=== PATIENT | male | born 1975 | race Two or more races ===

== ENCOUNTER 2023-08-10 22:57 | Inpatient (IN) | payer OTHER ==
[~2023-08-10] VITALS: Ht 185.4 cm; Wt 93.4 kg
[2023-08-10 23:33] LABS: BASOPHILS # (AUTO) 0.03 K/uL (0.00-0.20); BASOPHILS % (AUTO) 0.3 % (0.0-5.0); EOSINOPHILS # (AUTO) 0.17 K/uL (0.00-0.70); EOSINOPHILS % (AUTO) 1.7 % (0.0-8.0); HEMATOCRIT 30.4 % (42-54); IMMATURE GRANULOCYTE ABSOLUTE 0.08 K/uL (0-1); LYMPHOCYTES # (AUTO) 0.9 K/uL (1.0-4.8); LYMPHOCYTES % (AUTO) 9.5 % (21.0-51.0); MEAN CORPUSCULAR HEMOGLOBIN 33.2 pg (27.0-33.0); MEAN CORPUSCULAR HGB CONC 34.2 g/dL (32.0-36.0); MEAN CORPUSCULAR VOLUME 97.1 fL (79-99); MONOCYTES # (AUTO) 0.7 K/uL (0.1-1.0); MONOCYTES % (AUTO) 6.6 % (3.0-13.0); NEUTROPHILS % (AUTO) 81.1 % (40.0-77.0); PLATELET COUNT (AUTO) 105 K/uL (130-400); RED BLOOD CELL COUNT(AUTO) 3.13 MIL/uL (4.50-6.20); RED CELL DISTRIBUTION WIDTH 15.8 % (11.0-15.5); WHITE BLOOD COUNT (AUTO) 9.9 K/uL (4.8-10.8)
[2023-08-10 23:43] LABS: CREATININE 0.8 mg/dL (0.5-1.5); POTASSIUM 3.6 mmol/L (3.5-5.1)
[2023-08-10 23:56] LABS: ALBUMIN 1.6 g/dL (3.5-5.0); TOTAL PROTEIN, SERUM 9.3 g/dL (6.0-8.3)
[2023-08-10 23:58] LABS: BILIRUBIN,URINE 10 mg/dL (NEGATIVE); COLOR,URINE DARK-YELLOW (YELLOW); GLUCOSE, URINE (UA) NEGATIVE (NEGATIVE); KETONES,URINE NEGATIVE (NEGATIVE); LEUKOCYTE ESTERASE ,URINE NEGATIVE Leu/uL (NEGATIVE); NITRATE,URINE NEGATIVE (NEGATIVE); OCCULT BLOOD,URINE NEGATIVE (NEGATIVE); PROTEIN,URINE 10 mg/dL (NEGATIVE); UROBILINOGEN,URINE 0.2 mg/dL (0.2-1.0)
[2023-08-10 23:59] LABS: ADD UA MICROSCOPIC YES; APPEARANCE,URINE SLIGHTLY CLOUDY (CLEAR)
[2023-08-11 00:01] LABS: WBC MORPHOLOGY CONSISTENT W/DIFF
[2023-08-11 00:02] LABS: BILIRUBIN,TOTAL 18.9 mg/dL (0.2-1.0)
[2023-08-11 00:04] LABS: BACTERIA,URINE RARE /HPF (None Seen); MUCUS,URINE RARE LPF (None Seen); SQUAMOUS EPITHELIAL CELL,UR RARE /HPF (0-2); WBC,URINE 0-1 /HPF (0-1)
[2023-08-11 01:10] LABS: INR 1.9 (0.85-1.15); PROTHROMBIN TIME 21.1 SEC (9.6-11.6)
[2023-08-11 01:11] LABS: PARTIAL THROMBOPLASTIN TIME 40.5 SEC (26.3-35.5)
[2023-08-11] MEDS ORDERED: HYDROMORPHONE 0.5 MG SYG (0.5MG/0.5ML) IVP PRN (03:30)
[2023-08-11] MEDS ORDERED: ONDANSETRON 4MG INJ IVP PRN (03:30)
[2023-08-11] MEDS: ZOSYN 3.375GM +NS 50ML IVPB SCH ×2 (05:04→11:45)
[2023-08-11] MEDS ORDERED: ALBUMIN (HUMAN) 25% 200 ML IV ONE (08:54)
[2023-08-11] MEDS ORDERED: SODIUM BICARB 50MEQ 50ML VIAL 50 ML ONE (08:54)
[2023-08-11 14:36] LABS: BODY FLUID RBC 661 /cu. mm.; BODY FLUID WBC 168 /cu. mm.
[2023-08-11 14:41] VITALS: BP 120/65; PULSE 99; RESP 16; O2SAT 97
[2023-08-11 14:48] LABS: APPEARANCE BODY FLUID CLEAR (CLEAR); COLOR,BODY FLUID YELLOW (LT YELLOW); SPECIMENTYPE,BODY FLUID ASCITES; TOTAL VOLUME,BODY FLUID 6500 mL
[2023-08-11 14:50] LABS: TOTAL PROTEIN,BODY FLUID 0.7 g/dL
[2023-08-11 14:55] LABS: ALBUMIN,BODY FLUID 0.1 g/dL
[2023-08-11 16:06] LABS: BF LYMPHOCYTE 3 %; BF MACROPHAGE 2; BF OTHER CELLS 17; BF TOTAL CELLS COUNTED 100
== END 2023-08-11 15:35 | disposition home or self-care (01) | DRG 433 ==
LOC: EDH 22:57 → EDHIP 22:58
PROVIDERS: ADMIT Internal Medicine; ATTEND Internal Medicine
PROC: 0W9G3ZZ Drainage of Peritoneal Cavity, Percutaneous Approach (ICD-10-PCS; principal; 2023-08-11)
DX: K74.60 Unspecified cirrhosis of liver (principal); R18.8 Other ascites; Z79.899 Other long term (current) drug therapy
CPT/HCPCS: 36415; 49083; 76700; 80053; 81001; 82042; 82140; 83690; 84157; 84484; 85025; 85610; 85730; 87071; 87205; 89051; 93005; 96365; C1729; G0378; J2543; J3490; P9046

== ENCOUNTER 2023-12-06 08:11 | Emergency (ER) | payer OTHER ==
[~2023-12-06] VITALS: Ht 167.6 cm; Wt 90.7 kg
[2023-12-06 10:55] LABS: BASOPHILS # (AUTO) 0.04 K/uL (0.00-0.20); BASOPHILS % (AUTO) 0.4 % (0.0-5.0); EOSINOPHILS % (AUTO) 2.2 % (0.0-8.0); HEMATOCRIT 29.9 % (42-54); IMMATURE GRANULOCYTE ABSOLUTE 0.03 K/uL (0-1); LYMPHOCYTES # (AUTO) 0.7 K/uL (1.0-4.8); LYMPHOCYTES % (AUTO) 8.1 % (21.0-51.0); MEAN CORPUSCULAR HEMOGLOBIN 32.9 pg (27.0-33.0); MEAN CORPUSCULAR HGB CONC 33.4 g/dL (32.0-36.0); MEAN CORPUSCULAR VOLUME 98.4 fL (79-99); MONOCYTES # (AUTO) 0.5 K/uL (0.1-1.0); MONOCYTES % (AUTO) 5.6 % (3.0-13.0); NEUTROPHILS # (AUTO) 7.5 K/uL (1.8-7.7); NEUTROPHILS % (AUTO) 83.4 % (40.0-77.0); PLATELET COUNT (AUTO) 92 K/uL (130-400); RED BLOOD CELL COUNT(AUTO) 3.04 MIL/uL (4.50-6.20); RED CELL DISTRIBUTION WIDTH 14.4 % (11.0-15.5)
[2023-12-06 11:03] LABS: CREATININE 0.8 mg/dL (0.5-1.5); POTASSIUM 3.3 mmol/L (3.5-5.1)
[2023-12-06 11:08] LABS: ALBUMIN 2.1 g/dL (3.5-5.0); BILIRUBIN,TOTAL 7.6 mg/dL (0.2-1.0); TOTAL PROTEIN, SERUM 9.3 g/dL (6.0-8.3)
[2023-12-06] MEDS ORDERED: SODIUM BICARB 50MEQ 50ML VIAL 50 ML ONE (11:56)
[2023-12-06 12:08] LABS: INR 1.88 (0.85-1.15); PROTHROMBIN TIME 20.9 SEC (9.6-11.6)
[2023-12-06 12:09] LABS: PARTIAL THROMBOPLASTIN TIME 36.9 SEC (26.3-35.5)
[2023-12-06] MEDS ORDERED: ALBUMIN (HUMAN) 25% 100 ML IV ONE ×2 (12:53→13:07)
[2023-12-06] MEDS ORDERED: ALBUMIN (HUMAN) 25% 200 ML IV SCH (13:00)
[2023-12-06 14:07] VITALS: BP 118/86; PULSE 86; RESP 18; O2SAT 98
[2023-12-14] MEDS ORDERED: FURO20TA6 PO (23:01)
[2023-12-14] MEDS ORDERED: MULT-1299 PO (23:01)
[2023-12-14] MEDS ORDERED: SPIR50TA5 PO (23:01)
[2023-12-14] MEDS ORDERED: CETI-89 PO (23:01)
[2023-12-14] MEDS ORDERED: CALC500T13 PO (23:24)
== END 2023-12-06 14:09 | disposition home or self-care (01) ==
LOC: EDH 08:11
DX: R18.8 Other ascites (principal); K74.60 Unspecified cirrhosis of liver
CPT/HCPCS: 49083; 99285; 74176; 96365; 71045; 84484; 80053; 83690; 85025; 85610; 85730; 36415; 93005; P9047 ×2; J3490; C1729; P9046

== ENCOUNTER 2023-12-08 14:01 | Emergency (ER) | payer OTHER ==
[~2023-12-08] VITALS: Ht 185.4 cm; Wt 83.0 kg
[2023-12-08 14:38] LABS: BASOPHILS # (AUTO) 0.03 K/uL (0.00-0.20); BASOPHILS % (AUTO) 0.3 % (0.0-5.0); EOSINOPHILS # (AUTO) 0.62 K/uL (0.00-0.70); EOSINOPHILS % (AUTO) 6.2 % (0.0-8.0); HEMATOCRIT 28.6 % (42-54); IMMATURE GRANULOCYTE ABSOLUTE 0.05 K/uL (0-1); LYMPHOCYTES # (AUTO) 1.2 K/uL (1.0-4.8); MEAN CORPUSCULAR HGB CONC 33.2 g/dL (32.0-36.0); MEAN CORPUSCULAR VOLUME 99.3 fL (79-99); MONOCYTES # (AUTO) 0.5 K/uL (0.1-1.0); MONOCYTES % (AUTO) 4.9 % (3.0-13.0); NEUTROPHILS # (AUTO) 7.7 K/uL (1.8-7.7); NEUTROPHILS % (AUTO) 76.1 % (40.0-77.0); PLATELET COUNT (AUTO) 93 K/uL (130-400); RED BLOOD CELL COUNT(AUTO) 2.88 MIL/uL (4.50-6.20); RED CELL DISTRIBUTION WIDTH 14.6 % (11.0-15.5); WHITE BLOOD COUNT (AUTO) 10.1 K/uL (4.8-10.8)
[2023-12-08 14:53] LABS: CREATININE 0.9 mg/dL (0.5-1.5); POTASSIUM 3.7 mmol/L (3.5-5.1)
[2023-12-08 14:57] LABS: ALBUMIN 2.3 g/dL (3.5-5.0); BILIRUBIN,TOTAL 6.2 mg/dL (0.2-1.0); TOTAL PROTEIN, SERUM 8.5 g/dL (6.0-8.3)
[2023-12-08] MEDS ORDERED: DICY20TA2 PO (20:31)
[2023-12-08 21:07] VITALS: BP 128/74; PULSE 80; RESP 18; O2SAT 98
[2023-12-14] MEDS ORDERED: CETI-89 PO (23:01)
[2023-12-14] MEDS ORDERED: SPIR50TA5 PO (23:01)
[2023-12-14] MEDS ORDERED: MULT-1299 PO (23:01)
[2023-12-14] MEDS ORDERED: FURO20TA6 PO (23:01)
[2023-12-14] MEDS ORDERED: CALC500T13 PO (23:24)
== END 2023-12-08 21:08 | disposition home or self-care (01) ==
LOC: EDH 14:01
DX: R18.8 Other ascites (principal); K80.20 Calculus of gallbladder without cholecystitis without obstruction; K74.60 Unspecified cirrhosis of liver; R74.8 Abnormal levels of other serum enzymes; R10.11 Right upper quadrant pain
CPT/HCPCS: 36415; 76705; 80053; 83690; 85025

== ENCOUNTER 2023-12-17 23:20 | Inpatient (IN) | payer OTHER ==
[~2023-12-17] VITALS: Ht 182.9 cm; Wt 76.7 kg
[~2023-12-17 23:20] MED LIST: CALC500T13 PO; CETI-89 PO; DICY20TA2 PO; FURO20TA6 PO; IBUP-2070 PO; MULT-1299 PO; PROM118S5 PO; SPIR50TA5 PO
[2023-12-17] MEDS ORDERED: SPIR50TA5 PO (23:46)
[2023-12-17] MEDS ORDERED: FURO20TA4 PO (23:46)
[2023-12-17] MEDS ORDERED: MULT-1367 PO (23:46)
[2023-12-17] MEDS ORDERED: CETI-89 PO (23:46)
[2023-12-17 23:52] LABS: BASOPHILS # (AUTO) 0.05 K/uL (0.00-0.20); BASOPHILS % (AUTO) 0.5 % (0.0-5.0); EOSINOPHILS # (AUTO) 0.81 K/uL (0.00-0.70); HEMATOCRIT 30.3 % (42-54); IMMATURE GRANULOCYTE ABSOLUTE 0.07 K/uL (0-1); LYMPHOCYTES # (AUTO) 1.5 K/uL (1.0-4.8); LYMPHOCYTES % (AUTO) 15.2 % (21.0-51.0); MEAN CORPUSCULAR HEMOGLOBIN 32.3 pg (27.0-33.0); MEAN CORPUSCULAR HGB CONC 33.7 g/dL (32.0-36.0); MEAN CORPUSCULAR VOLUME 95.9 fL (79-99); MONOCYTES # (AUTO) 1.5 K/uL (0.1-1.0); MONOCYTES % (AUTO) 14.5 % (3.0-13.0); NEUTROPHILS # (AUTO) 6.2 K/uL (1.8-7.7); NEUTROPHILS % (AUTO) 61.1 % (40.0-77.0); PLATELET COUNT (AUTO) 133 K/uL (130-400); RED BLOOD CELL COUNT(AUTO) 3.16 MIL/uL (4.50-6.20); RED CELL DISTRIBUTION WIDTH 15.8 % (11.0-15.5); WHITE BLOOD COUNT (AUTO) 10.1 K/uL (4.8-10.8)
[2023-12-18] VITALS (7 sets, daily range): BP systolic 113–127; BP diastolic 65–73; PULSE 94–114; RESP 18–20; O2SAT 95–96
[2023-12-18 00:01] LABS: CREATININE 0.9 mg/dL (0.5-1.5); POTASSIUM 3.9 mmol/L (3.5-5.1)
[2023-12-18 00:05] LABS: ALBUMIN 2.2 g/dL (3.5-5.0); TOTAL PROTEIN, SERUM 8.5 g/dL (6.0-8.3)
[2023-12-18 00:45] LABS: B-TYPE NATRIURETIC PEPTIDE 80 pg/mL (0-100)
[2023-12-18 01:11] LABS: INR 1.73 (0.85-1.15); PROTHROMBIN TIME 19.4 SEC (9.6-11.6)
[2023-12-18] MEDS: CETIRIZINE HCL 5 MG TABLET PO SCH (07:46)
[2023-12-18] MEDS: FUROSEMIDE 20 MG TABLET PO SCH ×2 (07:46→19:53)
[2023-12-18] MEDS: MULTIVITAMIN WITH MINERALS TABLET PO SCH (07:46)
[2023-12-18] MEDS: SPIRONOLACTONE 25 MG TAB PO SCH ×2 (07:47→19:53)
[2023-12-18] MEDS: KETOROLAC 15MG/ML VIAL (15MG/ML) IV PRN ×3 (07:48→22:55)
[2023-12-19] VITALS (15 sets, daily range): BP systolic 99–137; BP diastolic 58–83; PULSE 78–107; RESP 16–22; O2SAT 95–100
[2023-12-19 04:55] LABS: BASOPHILS # (AUTO) 0.03 K/uL (0.00-0.20); BASOPHILS % (AUTO) 0.4 % (0.0-5.0); EOSINOPHILS # (AUTO) 1.02 K/uL (0.00-0.70); EOSINOPHILS % (AUTO) 12.3 % (0.0-8.0); IMMATURE GRANULOCYTE ABSOLUTE 0.04 K/uL (0-1); LYMPHOCYTES # (AUTO) 1.4 K/uL (1.0-4.8); LYMPHOCYTES % (AUTO) 17.2 % (21.0-51.0); MEAN CORPUSCULAR HGB CONC 33.1 g/dL (32.0-36.0); MEAN CORPUSCULAR VOLUME 96.7 fL (79-99); MONOCYTES # (AUTO) 1.1 K/uL (0.1-1.0); MONOCYTES % (AUTO) 13.1 % (3.0-13.0); NEUTROPHILS # (AUTO) 4.7 K/uL (1.8-7.7); NEUTROPHILS % (AUTO) 56.5 % (40.0-77.0); PLATELET COUNT (AUTO) 114 K/uL (130-400); RED CELL DISTRIBUTION WIDTH 15.9 % (11.0-15.5); WHITE BLOOD COUNT (AUTO) 8.3 K/uL (4.8-10.8)
[2023-12-19 05:03] LABS: INR 1.68 (0.85-1.15); PROTHROMBIN TIME 18.8 SEC (9.6-11.6)
[2023-12-19 05:04] LABS: PARTIAL THROMBOPLASTIN TIME 39.9 SEC (26.3-35.5)
[2023-12-19 05:11] LABS: ALBUMIN 1.9 g/dL (3.5-5.0); BILIRUBIN,TOTAL 6.6 mg/dL (0.2-1.0); CREATININE 1.1 mg/dL (0.5-1.5); POTASSIUM 3.6 mmol/L (3.5-5.1); TOTAL PROTEIN, SERUM 7.8 g/dL (6.0-8.3)
[2023-12-19] MEDS ORDERED: POTASSIUM CHLORIDE 20MEQ/100ML 100 ML IV PRN (06:30)
[2023-12-19] MEDS ORDERED: POTASSIUM CHLORIDE 10% ELIXIR 20 MEQ/15 ML UDCUP PO PRN (06:30)
[2023-12-19] MEDS: CETIRIZINE HCL 5 MG TABLET PO SCH (08:55)
[2023-12-19] MEDS: MULTIVITAMIN WITH MINERALS TABLET PO SCH (08:55)
[2023-12-19] MEDS: SPIRONOLACTONE 25 MG TAB PO SCH ×2 (08:55→20:44)
[2023-12-19] MEDS: FUROSEMIDE 20 MG TABLET PO SCH ×2 (08:55→20:45)
[2023-12-20] VITALS (63 sets, daily range): BP systolic 69–132; BP diastolic 46–71; PULSE 90–136; RESP 14–24; O2SAT 96–100
[2023-12-20] MEDS ORDERED: ZOLPIDEM TARTRATE 5 MG TAB PO PRN (06:30)
[2023-12-20] MEDS: CETIRIZINE HCL 5 MG TABLET PO SCH (08:26)
[2023-12-20] MEDS: MULTIVITAMIN WITH MINERALS TABLET PO SCH (08:26)
[2023-12-20] MEDS: KETOROLAC 15MG/ML VIAL (15MG/ML) IV PRN ×2 (08:29→13:35)
[2023-12-20] MEDS: FUROSEMIDE 20 MG TABLET PO SCH (09:00)
[2023-12-20] MEDS: SPIRONOLACTONE 25 MG TAB PO SCH (09:00)
[2023-12-20] MEDS ORDERED: 0.9% NACL 250ML 250 ML IV SCH ×2 (14:00)
[2023-12-20] MEDS ORDERED: METOPROLOL TARTRATE 1 MG/ML 5ML VIAL IV ONE (14:00)
[2023-12-20] MEDS ORDERED: ALBUMIN (HUMAN) 25% 100 ML IV ONE ×2 (14:09→14:30)
[2023-12-20] MEDS ORDERED: MIDODRINE HCL 5 MG TABLET PO ONE (14:30)
[2023-12-20] MEDS ORDERED: IOHEXOL 350 MG/ML 100ML INFUS..BTL IV ONE (15:03)
[2023-12-20] MEDS ORDERED: NOREPINEPHRIN 4MG/NS 250ML 250 ML IV ONE (15:11)
[2023-12-20] MEDS ORDERED: SOLU-MEDROL 125MG VIAL ONE (15:26)
[2023-12-20] MEDS ORDERED: PHENYLEPHRINE HCL 10 MG in 0.9% NACL 250ML 250 ML IV PRN (15:30)
[2023-12-20] MEDS ORDERED: PHENYLEPHRINE HCL 10 MG/ML 1ML VIAL IV ONE (15:30)
[2023-12-20 15:31] LABS: ABG HCO3 17.1 mmol/L (21.0-28.0); ABG OXYGEN SATURATION 98.3 % (95.0-99.0); ABG PCO2 29 mmHg (35-48); ABG PH 7.394 (7.35-7.450); CARBON MONOXIDE 1.2; HHb 1.7; VENT MODE, BG NRB (ROOM AIR)
[2023-12-20 15:45] LABS: MEAN CORPUSCULAR HEMOGLOBIN 33.1 pg (27.0-33.0); MEAN CORPUSCULAR HGB CONC 30.9 g/dL (32.0-36.0); MEAN CORPUSCULAR VOLUME 107.4 fL (79-99); PLATELET COUNT (AUTO) 148 K/uL (130-400); RED BLOOD CELL COUNT(AUTO) 1.75 MIL/uL (4.50-6.20); RED CELL DISTRIBUTION WIDTH 16.6 % (11.0-15.5); WHITE BLOOD COUNT (AUTO) 10.8 K/uL (4.8-10.8)
[2023-12-20] MEDS ORDERED: VANCOMYCIN PROTOCOL PER PHARMACY IV SCH (16:00)
[2023-12-20] MEDS ORDERED: ALBUMIN (HUMAN) 25% 50 ML IV ONE (16:00)
[2023-12-20] MEDS ORDERED: SOLU-MEDROL 125MG VIAL IVP ONE (16:00)
[2023-12-20 16:13] LABS: HEMATOCRIT 18.8 % (42-54)
[2023-12-20 16:20] LABS: CREATININE 1.4 mg/dL (0.5-1.5); POTASSIUM 3.8 mmol/L (3.5-5.1)
[2023-12-20 16:25] LABS: ALBUMIN 2.2 g/dL (3.5-5.0); BILIRUBIN,TOTAL 5.7 mg/dL (0.2-1.0); MAGNESIUM 2.1 mg/dL (1.80-2.40); PHOSPHORUS 4.4 mg/dL (2.5-4.9); TOTAL PROTEIN, SERUM 6.3 g/dL (6.0-8.3)
[2023-12-20] MEDS ORDERED: PHYTONADIONE 10 MG in 0.9%NACL 50ML 50 ML IVPB ONE (16:30)
[2023-12-20] MEDS: ZOSYN 3.375GM +NS 50ML IV SCH (16:55)
[2023-12-20 17:01] LABS: BASOPHILS # (AUTO) 0.02 K/uL (0.00-0.20); BASOPHILS % (AUTO) 0.2 % (0.0-5.0); EOSINOPHILS % (AUTO) 8.1 % (0.0-8.0); IMMATURE GRANULOCYTE ABSOLUTE 0.21 K/uL (0-1); LYMPHOCYTES # (AUTO) 1.5 K/uL (1.0-4.8); LYMPHOCYTES % (AUTO) 14.9 % (21.0-51.0); MEAN CORPUSCULAR HEMOGLOBIN 32.9 pg (27.0-33.0); MEAN CORPUSCULAR HGB CONC 32.2 g/dL (32.0-36.0); MEAN CORPUSCULAR VOLUME 102.4 fL (79-99); MONOCYTES # (AUTO) 1.1 K/uL (0.1-1.0); NEUTROPHILS # (AUTO) 6.3 K/uL (1.8-7.7); NEUTROPHILS % (AUTO) 63.7 % (40.0-77.0); NUCLEATED RED BLOOD CELLS 0.2 % (0.0-0.19); PLATELET COUNT (AUTO) 135 K/uL (130-400); RED BLOOD CELL COUNT(AUTO) 1.67 MIL/uL (4.50-6.20); RED CELL DISTRIBUTION WIDTH 16.6 % (11.0-15.5); WHITE BLOOD COUNT (AUTO) 9.9 K/uL (4.8-10.8)
[2023-12-20 17:02] LABS: HEMATOCRIT 17.1 % (42-54)
[2023-12-20 17:15] LABS: INR 2.2 (0.85-1.15); PROTHROMBIN TIME 24.2 SEC (9.6-11.6)
[2023-12-20 17:16] LABS: PARTIAL THROMBOPLASTIN TIME 43.3 SEC (26.3-35.5)
[2023-12-20] MEDS: VANCOMYCIN 1.25 GM/250 ML BAG 250 ML IV SCH (17:41)
[2023-12-20] MEDS: PHENYLEPHRINE HCL 100 MG in 0.9% NACL 250ML 250 ML IV SCH (17:59)
[2023-12-20] MEDS ORDERED: COAGULATION FACTOR VIIA RECOMB 1 MG VIAL IV STA (18:49)
[2023-12-20] MEDS ORDERED: HUMAN PROTHROMBIN COMPLX(PCC) 500 UNIT KIT IV STA (18:49)
[2023-12-20] MEDS: MIDODRINE HCL 5 MG TABLET PO SCH (21:09)
[2023-12-20] MEDS: FAMOTIDINE 20MG VIAL IV SCH (21:09)
[2023-12-20 21:28] LABS: APPEARANCE,URINE CLOUDY (CLEAR); BILIRUBIN,URINE 2 mg/dL (NEGATIVE); COLOR,URINE DARK-YELLOW (YELLOW); GLUCOSE, URINE (UA) NEGATIVE (NEGATIVE); KETONES,URINE NEGATIVE (NEGATIVE); LEUKOCYTE ESTERASE ,URINE NEGATIVE Leu/uL (NEGATIVE); NITRATE,URINE NEGATIVE (NEGATIVE); OCCULT BLOOD,URINE NEGATIVE (NEGATIVE); PROTEIN,URINE 50 mg/dL (NEGATIVE); UROBILINOGEN,URINE >=8.0 mg/dL (0.2-1.0)
[2023-12-20 21:31] LABS: BACTERIA,URINE FEW /HPF (None Seen); MUCUS,URINE FEW LPF (None Seen); SQUAMOUS EPITHELIAL CELL,UR FEW /HPF (0-2)
[2023-12-20] MEDS ORDERED: IOHEXOL-350 75 ML VIAL IV ONE (22:24)
[2023-12-20 23:46] LABS: BASOPHILS # (AUTO) 0.01 K/uL (0.00-0.20); BASOPHILS % (AUTO) 0.1 % (0.0-5.0); EOSINOPHILS # (AUTO) 0.05 K/uL (0.00-0.70); EOSINOPHILS % (AUTO) 0.5 % (0.0-8.0); IMMATURE GRANULOCYTE ABSOLUTE 0.21 K/uL (0-1); LYMPHOCYTES % (AUTO) 9.2 % (21.0-51.0); MEAN CORPUSCULAR HEMOGLOBIN 32.5 pg (27.0-33.0); MEAN CORPUSCULAR HGB CONC 33.5 g/dL (32.0-36.0); MONOCYTES # (AUTO) 0.3 K/uL (0.1-1.0); MONOCYTES % (AUTO) 3.3 % (3.0-13.0); NEUTROPHILS # (AUTO) 8.8 K/uL (1.8-7.7); NEUTROPHILS % (AUTO) 84.9 % (40.0-77.0); PLATELET COUNT (AUTO) 128 K/uL (130-400); RED BLOOD CELL COUNT(AUTO) 1.97 MIL/uL (4.50-6.20); RED CELL DISTRIBUTION WIDTH 17.7 % (11.0-15.5); WHITE BLOOD COUNT (AUTO) 10.4 K/uL (4.8-10.8)
[2023-12-20 23:55] LABS: HEMATOCRIT 19.1 % (42-54)
[2023-12-21] VITALS (99 sets, daily range): BP systolic 90–130; BP diastolic 32–70; PULSE 69–116; RESP 9–35; O2SAT 96–100
[2023-12-21 04:40] LABS: BASOPHILS # (AUTO) 0.01 K/uL (0.00-0.20); BASOPHILS % (AUTO) 0.1 % (0.0-5.0); HEMATOCRIT 26.1 % (42-54); LYMPHOCYTES # (AUTO) 1.3 K/uL (1.0-4.8); LYMPHOCYTES % (AUTO) 11.7 % (21.0-51.0); MEAN CORPUSCULAR HEMOGLOBIN 32.8 pg (27.0-33.0); MEAN CORPUSCULAR HGB CONC 33.7 g/dL (32.0-36.0); MEAN CORPUSCULAR VOLUME 97.4 fL (79-99); MONOCYTES # (AUTO) 0.3 K/uL (0.1-1.0); MONOCYTES % (AUTO) 2.6 % (3.0-13.0); NEUTROPHILS # (AUTO) 9.3 K/uL (1.8-7.7); NEUTROPHILS % (AUTO) 84.7 % (40.0-77.0); PLATELET COUNT (AUTO) 142 K/uL (130-400); RED BLOOD CELL COUNT(AUTO) 2.68 MIL/uL (4.50-6.20); RED CELL DISTRIBUTION WIDTH 17.3 % (11.0-15.5)
[2023-12-21 04:50] LABS: CREATININE 1.6 mg/dL (0.5-1.5); POTASSIUM 5.8 mmol/L (3.5-5.1)
[2023-12-21 04:58] LABS: INR 1.39 (0.85-1.15); PROTHROMBIN TIME 15.8 SEC (9.6-11.6)
[2023-12-21 05:00] LABS: PARTIAL THROMBOPLASTIN TIME 33.3 SEC (26.3-35.5)
[2023-12-21] MEDS: VANCOMYCIN 1.25 GM/250 ML BAG 250 ML IV SCH ×2 (05:01→16:55)
[2023-12-21] MEDS: ZOSYN 3.375GM +NS 50ML IV SCH ×4 (05:54→23:57)
[2023-12-21] MEDS: CETIRIZINE HCL 5 MG TABLET PO SCH (08:15)
[2023-12-21] MEDS: LEVOFLOXACIN 750 MG/D5W 150 ML 150 ML IV SCH (08:15)
[2023-12-21] MEDS: MULTIVITAMIN WITH MINERALS TABLET PO SCH (08:16)
[2023-12-21] MEDS: MIDODRINE HCL 5 MG TABLET PO SCH ×3 (08:16→21:03)
[2023-12-21] MEDS: FAMOTIDINE 20MG VIAL IV SCH ×2 (08:18→21:02)
[2023-12-21 09:28] LABS: BASOPHILS # (AUTO) 0.01 K/uL (0.00-0.20); BASOPHILS % (AUTO) 0.1 % (0.0-5.0); HEMATOCRIT 23.8 % (42-54); IMMATURE GRANULOCYTE ABSOLUTE 0.07 K/uL (0-1); LYMPHOCYTES # (AUTO) 1.5 K/uL (1.0-4.8); LYMPHOCYTES % (AUTO) 13.8 % (21.0-51.0); MEAN CORPUSCULAR HEMOGLOBIN 32.4 pg (27.0-33.0); MEAN CORPUSCULAR HGB CONC 33.6 g/dL (32.0-36.0); MEAN CORPUSCULAR VOLUME 96.4 fL (79-99); MONOCYTES # (AUTO) 0.6 K/uL (0.1-1.0); MONOCYTES % (AUTO) 5.4 % (3.0-13.0); NEUTROPHILS # (AUTO) 8.8 K/uL (1.8-7.7); NEUTROPHILS % (AUTO) 80.1 % (40.0-77.0); PLATELET COUNT (AUTO) 147 K/uL (130-400); RED BLOOD CELL COUNT(AUTO) 2.47 MIL/uL (4.50-6.20); RED CELL DISTRIBUTION WIDTH 17.9 % (11.0-15.5)
[2023-12-21] MEDS ORDERED: BUMETANIDE 1MG/4ML VIAL IVP ONE (10:00)
[2023-12-21] MEDS ORDERED: SODIUM BICARB 50MEQ 50ML VIAL IV ONE (10:00)
[2023-12-21 10:04] LABS: ALBUMIN 2.9 g/dL (3.5-5.0); BILIRUBIN,DIRECT 3.6 mg/dL (0.0-0.3); BILIRUBIN,TOTAL 8.5 mg/dL (0.2-1.0); TOTAL PROTEIN, SERUM 6.9 g/dL (6.0-8.3)
[2023-12-21] MEDS: ALBUMIN (HUMAN) 25% 50 ML IV SCH ×3 (10:07→21:03)
[2023-12-21] MEDS: OCTREOTIDE ACETATE 100 MCG/ML AMP IV SCH ×2 (10:52→17:50)
[2023-12-21] MEDS ORDERED: ONDANSETRON 4MG INJ ONE (10:56)
[2023-12-21] MEDS ORDERED: HYDROMORPHONE 0.5 MG SYG (0.5MG/0.5ML) ONE (14:39)
[2023-12-21] MEDS ORDERED: MORPHINE 2 MG SYG ONE (14:39)
[2023-12-21] MEDS ORDERED: LIDOCAINE HCL MPF 1% 5ML VIAL ONE (14:43)
[2023-12-21] MEDS ORDERED: MORPHINE 2 MG SYG IVP ONE (15:00)
[2023-12-21] MEDS ORDERED: HYDROMORPHONE 0.5 MG SYG (0.5MG/0.5ML) IVP ONE (15:00)
[2023-12-21 15:16] LABS: BASOPHILS # (AUTO) 0.01 K/uL (0.00-0.20); BASOPHILS % (AUTO) 0.1 % (0.0-5.0); HEMATOCRIT 21.5 % (42-54); IMMATURE GRANULOCYTE ABSOLUTE 0.09 K/uL (0-1); LYMPHOCYTES # (AUTO) 1.7 K/uL (1.0-4.8); MEAN CORPUSCULAR HEMOGLOBIN 31.5 pg (27.0-33.0); MEAN CORPUSCULAR HGB CONC 32.6 g/dL (32.0-36.0); MEAN CORPUSCULAR VOLUME 96.8 fL (79-99); MONOCYTES # (AUTO) 1.1 K/uL (0.1-1.0); NEUTROPHILS # (AUTO) 9.3 K/uL (1.8-7.7); NEUTROPHILS % (AUTO) 76.2 % (40.0-77.0); PLATELET COUNT (AUTO) 121 K/uL (130-400); RED BLOOD CELL COUNT(AUTO) 2.22 MIL/uL (4.50-6.20); RED CELL DISTRIBUTION WIDTH 18.1 % (11.0-15.5); WHITE BLOOD COUNT (AUTO) 12.2 K/uL (4.8-10.8)
[2023-12-21] MEDS ORDERED: DESMOPRESSIN 40MCG INJ 20 MCG in 0.9%NACL 50ML 50 ML IJ SCH (15:30)
[2023-12-21 15:40] LABS: ALBUMIN 2.5 g/dL (3.5-5.0); BILIRUBIN,TOTAL 7.7 mg/dL (0.2-1.0); CREATININE 1.4 mg/dL (0.5-1.5); POTASSIUM 4.6 mmol/L (3.5-5.1); TOTAL PROTEIN, SERUM 6.1 g/dL (6.0-8.3)
[2023-12-21] MEDS: PHENYLEPHRINE HCL 100 MG in 0.9% NACL 250ML 250 ML IV SCH (18:45)
[2023-12-21 23:27] LABS: BASOPHILS # (AUTO) 0.01 K/uL (0.00-0.20); BASOPHILS % (AUTO) 0.1 % (0.0-5.0); HEMATOCRIT 21.3 % (42-54); IMMATURE GRANULOCYTE ABSOLUTE 0.09 K/uL (0-1); LYMPHOCYTES # (AUTO) 1.2 K/uL (1.0-4.8); MEAN CORPUSCULAR HEMOGLOBIN 32.1 pg (27.0-33.0); MEAN CORPUSCULAR HGB CONC 33.3 g/dL (32.0-36.0); MEAN CORPUSCULAR VOLUME 96.4 fL (79-99); MONOCYTES # (AUTO) 1.8 K/uL (0.1-1.0); MONOCYTES % (AUTO) 13.2 % (3.0-13.0); NEUTROPHILS # (AUTO) 10.3 K/uL (1.8-7.7); PLATELET COUNT (AUTO) 111 K/uL (130-400); RED BLOOD CELL COUNT(AUTO) 2.21 MIL/uL (4.50-6.20); RED CELL DISTRIBUTION WIDTH 17.2 % (11.0-15.5); WHITE BLOOD COUNT (AUTO) 13.4 K/uL (4.8-10.8)
[2023-12-22] VITALS (131 sets, daily range): BP systolic 87–122; BP diastolic 26–68; PULSE 53–98; RESP 7–27; O2SAT 95–100
[2023-12-22] MEDS: OCTREOTIDE ACETATE 100 MCG/ML AMP IV SCH ×3 (01:11→16:38)
[2023-12-22] MEDS: HYDROMORPHONE 0.5 MG SYG (0.5MG/0.5ML) IVP PRN ×2 (01:11→14:29)
[2023-12-22 04:02] LABS: BASOPHILS # (AUTO) 0.01 K/uL (0.00-0.20); BASOPHILS % (AUTO) 0.1 % (0.0-5.0); LYMPHOCYTES # (AUTO) 1.1 K/uL (1.0-4.8); LYMPHOCYTES % (AUTO) 8.1 % (21.0-51.0); MEAN CORPUSCULAR HEMOGLOBIN 32.2 pg (27.0-33.0); MEAN CORPUSCULAR VOLUME 97.5 fL (79-99); MONOCYTES # (AUTO) 1.2 K/uL (0.1-1.0); MONOCYTES % (AUTO) 8.4 % (3.0-13.0); NEUTROPHILS # (AUTO) 11.7 K/uL (1.8-7.7); NEUTROPHILS % (AUTO) 82.7 % (40.0-77.0); PLATELET COUNT (AUTO) 101 K/uL (130-400); RED BLOOD CELL COUNT(AUTO) 2.36 MIL/uL (4.50-6.20); RED CELL DISTRIBUTION WIDTH 16.9 % (11.0-15.5); WHITE BLOOD COUNT (AUTO) 14.1 K/uL (4.8-10.8)
[2023-12-22] MEDS: ALBUMIN (HUMAN) 25% 50 ML IV SCH ×4 (04:11→22:00)
[2023-12-22] MEDS: VANCOMYCIN 1.25 GM/250 ML BAG 250 ML IV SCH (04:52)
[2023-12-22] MEDS: ZOSYN 3.375GM +NS 50ML IV SCH ×2 (08:45→16:37)
[2023-12-22] MEDS: FOLIC ACID 5 MG/ML VIAL IV SCH (08:46)
[2023-12-22] MEDS: LEVOFLOXACIN 750 MG/D5W 150 ML 150 ML IV SCH (08:46)
[2023-12-22] MEDS: THIAMINE HCL 100 MG/ML 2ML VIAL IVP SCH (08:47)
[2023-12-22] MEDS: FAMOTIDINE 20MG VIAL IV SCH ×2 (08:47→21:30)
[2023-12-22] MEDS: CETIRIZINE HCL 5 MG TABLET PO SCH (08:48)
[2023-12-22] MEDS: MULTIVITAMIN WITH MINERALS TABLET PO SCH (08:48)
[2023-12-22] MEDS: MIDODRINE HCL 5 MG TABLET PO SCH ×3 (08:49→21:30)
[2023-12-22 09:51] LABS: BASOPHILS # (AUTO) 0.01 K/uL (0.00-0.20); BASOPHILS % (AUTO) 0.1 % (0.0-5.0); HEMATOCRIT 22.5 % (42-54); IMMATURE GRANULOCYTE ABSOLUTE 0.09 K/uL (0-1); LYMPHOCYTES # (AUTO) 1.2 K/uL (1.0-4.8); LYMPHOCYTES % (AUTO) 8.7 % (21.0-51.0); MEAN CORPUSCULAR HEMOGLOBIN 32.5 pg (27.0-33.0); MEAN CORPUSCULAR HGB CONC 32.9 g/dL (32.0-36.0); MEAN CORPUSCULAR VOLUME 98.7 fL (79-99); MONOCYTES # (AUTO) 1.5 K/uL (0.1-1.0); NEUTROPHILS % (AUTO) 79.6 % (40.0-77.0); PLATELET COUNT (AUTO) 93 K/uL (130-400); RED BLOOD CELL COUNT(AUTO) 2.28 MIL/uL (4.50-6.20); RED CELL DISTRIBUTION WIDTH 17.1 % (11.0-15.5); WHITE BLOOD COUNT (AUTO) 13.9 K/uL (4.8-10.8)
[2023-12-22] MEDS ORDERED: TRAMADOL HCL 50 MG TABLET PO PRN (12:30)
[2023-12-22 15:02] LABS: HEMATOCRIT 22.4 % (42-54)
[2023-12-22] MEDS: INSULIN HUMULIN R 100 UNIT/ML 3ML SQ SCH ×2 (16:29→21:42)
[2023-12-22 20:41] LABS: HEMATOCRIT 23.8 % (42-54)
[2023-12-22] MEDS: VANCOMYCIN 1G/250ML KIT 250 ML IV SCH (21:32)
[2023-12-22 22:58] LABS: BASOPHILS # (AUTO) 0.01 K/uL (0.00-0.20); BASOPHILS % (AUTO) 0.1 % (0.0-5.0); HEMATOCRIT 25.4 % (42-54); IMMATURE GRANULOCYTE ABSOLUTE 0.11 K/uL (0-1); LYMPHOCYTES # (AUTO) 1.3 K/uL (1.0-4.8); LYMPHOCYTES % (AUTO) 9.3 % (21.0-51.0); MEAN CORPUSCULAR HEMOGLOBIN 31.9 pg (27.0-33.0); MEAN CORPUSCULAR HGB CONC 32.3 g/dL (32.0-36.0); MEAN CORPUSCULAR VOLUME 98.8 fL (79-99); MONOCYTES # (AUTO) 1.4 K/uL (0.1-1.0); MONOCYTES % (AUTO) 10.2 % (3.0-13.0); NEUTROPHILS # (AUTO) 10.7 K/uL (1.8-7.7); NEUTROPHILS % (AUTO) 79.6 % (40.0-77.0); PLATELET COUNT (AUTO) 99 K/uL (130-400); RED BLOOD CELL COUNT(AUTO) 2.57 MIL/uL (4.50-6.20); RED CELL DISTRIBUTION WIDTH 16.6 % (11.0-15.5); WHITE BLOOD COUNT (AUTO) 13.5 K/uL (4.8-10.8)
[2023-12-23] VITALS (88 sets, daily range): BP systolic 88–142; BP diastolic 31–70; PULSE 65–95; RESP 7–20; O2SAT 95–98
[2023-12-23] MEDS: HYDROMORPHONE 0.5 MG SYG (0.5MG/0.5ML) IVP PRN ×3 (00:45→20:10)
[2023-12-23] MEDS: ZOSYN 3.375GM +NS 50ML IV SCH ×4 (00:45→23:52)
[2023-12-23] MEDS: OCTREOTIDE ACETATE 100 MCG/ML AMP IV SCH ×3 (04:06→17:03)
[2023-12-23] MEDS: ALBUMIN (HUMAN) 25% 50 ML IV SCH (04:06)
[2023-12-23 05:17] LABS: BASOPHILS # (AUTO) 0.01 K/uL (0.00-0.20); BASOPHILS % (AUTO) 0.1 % (0.0-5.0); HEMATOCRIT 23.1 % (42-54); LYMPHOCYTES # (AUTO) 1.1 K/uL (1.0-4.8); LYMPHOCYTES % (AUTO) 9.6 % (21.0-51.0); MEAN CORPUSCULAR HEMOGLOBIN 31.9 pg (27.0-33.0); MEAN CORPUSCULAR HGB CONC 32.9 g/dL (32.0-36.0); MEAN CORPUSCULAR VOLUME 97.1 fL (79-99); MONOCYTES # (AUTO) 1.3 K/uL (0.1-1.0); MONOCYTES % (AUTO) 11.2 % (3.0-13.0); NEUTROPHILS # (AUTO) 9.3 K/uL (1.8-7.7); NEUTROPHILS % (AUTO) 78.3 % (40.0-77.0); PLATELET COUNT (AUTO) 101 K/uL (130-400); RED BLOOD CELL COUNT(AUTO) 2.38 MIL/uL (4.50-6.20); RED CELL DISTRIBUTION WIDTH 16.5 % (11.0-15.5); WHITE BLOOD COUNT (AUTO) 11.8 K/uL (4.8-10.8)
[2023-12-23 07:24] LABS: CREATININE 0.7 mg/dL (0.5-1.5); POTASSIUM 4.8 mmol/L (3.5-5.1)
[2023-12-23] MEDS: INSULIN HUMULIN R 100 UNIT/ML 3ML SQ SCH ×4 (07:30→20:12)
[2023-12-23] MEDS: LEVOFLOXACIN 750 MG/D5W 150 ML 150 ML IV SCH (08:18)
[2023-12-23] MEDS: FOLIC ACID 5 MG/ML VIAL IV SCH (08:18)
[2023-12-23] MEDS: MIDODRINE HCL 5 MG TABLET PO SCH ×3 (08:20→20:19)
[2023-12-23] MEDS: MULTIVITAMIN WITH MINERALS TABLET PO SCH (08:20)
[2023-12-23] MEDS: THIAMINE HCL 100 MG/ML 2ML VIAL IVP SCH (08:20)
[2023-12-23] MEDS: CETIRIZINE HCL 5 MG TABLET PO SCH (08:20)
[2023-12-23] MEDS: FAMOTIDINE 20MG VIAL IV SCH ×2 (08:21→20:11)
[2023-12-23] MEDS: VANCOMYCIN 1G/250ML KIT 250 ML IV SCH ×2 (08:21→20:10)
[2023-12-23] MEDS ORDERED: MIDODRINE HCL 5 MG TABLET PO ONE (09:30)
[2023-12-23 10:20] LABS: BASOPHILS # (AUTO) 0.01 K/uL (0.00-0.20); BASOPHILS % (AUTO) 0.1 % (0.0-5.0); EOSINOPHILS # (AUTO) 0.01 K/uL (0.00-0.70); EOSINOPHILS % (AUTO) 0.1 % (0.0-8.0); HEMATOCRIT 25.3 % (42-54); IMMATURE GRANULOCYTE ABSOLUTE 0.09 K/uL (0-1); LYMPHOCYTES # (AUTO) 1.4 K/uL (1.0-4.8); LYMPHOCYTES % (AUTO) 13.9 % (21.0-51.0); MEAN CORPUSCULAR HEMOGLOBIN 32.2 pg (27.0-33.0); MEAN CORPUSCULAR HGB CONC 32.4 g/dL (32.0-36.0); MEAN CORPUSCULAR VOLUME 99.2 fL (79-99); MONOCYTES # (AUTO) 1.1 K/uL (0.1-1.0); MONOCYTES % (AUTO) 10.4 % (3.0-13.0); NEUTROPHILS # (AUTO) 7.7 K/uL (1.8-7.7); NEUTROPHILS % (AUTO) 74.6 % (40.0-77.0); PLATELET COUNT (AUTO) 88 K/uL (130-400); RED BLOOD CELL COUNT(AUTO) 2.55 MIL/uL (4.50-6.20); RED CELL DISTRIBUTION WIDTH 16.6 % (11.0-15.5); WHITE BLOOD COUNT (AUTO) 10.3 K/uL (4.8-10.8)
[2023-12-23 10:40] LABS: ALBUMIN 2.7 g/dL (3.5-5.0); BILIRUBIN,DIRECT 3.1 mg/dL (0.0-0.3); BILIRUBIN,TOTAL 6.7 mg/dL (0.2-1.0)
[2023-12-23 15:04] LABS: EOSINOPHILS # (AUTO) 0.02 K/uL (0.00-0.70); EOSINOPHILS % (AUTO) 0.2 % (0.0-8.0); HEMATOCRIT 23.6 % (42-54); IMMATURE GRANULOCYTE ABSOLUTE 0.08 K/uL (0-1); LYMPHOCYTES # (AUTO) 1.7 K/uL (1.0-4.8); LYMPHOCYTES % (AUTO) 18.5 % (21.0-51.0); MEAN CORPUSCULAR HEMOGLOBIN 32.1 pg (27.0-33.0); MEAN CORPUSCULAR HGB CONC 32.6 g/dL (32.0-36.0); MEAN CORPUSCULAR VOLUME 98.3 fL (79-99); MONOCYTES % (AUTO) 11.4 % (3.0-13.0); NEUTROPHILS # (AUTO) 6.3 K/uL (1.8-7.7); PLATELET COUNT (AUTO) 78 K/uL (130-400); RED CELL DISTRIBUTION WIDTH 16.5 % (11.0-15.5); WHITE BLOOD COUNT (AUTO) 9.1 K/uL (4.8-10.8)
[2023-12-23] MEDS ORDERED: LACTATED RINGERS 1000ML IV SCH (17:00)
[2023-12-23] MEDS: PHENYLEPHRINE HCL 100 MG in 0.9% NACL 250ML 250 ML IV SCH (18:42)
[2023-12-24] VITALS (80 sets, daily range): BP systolic 84–129; BP diastolic 31–74; PULSE 68–118; RESP 7–21; O2SAT 91–96
[2023-12-24] MEDS: HYDROMORPHONE 0.5 MG SYG (0.5MG/0.5ML) IVP PRN (04:51)
[2023-12-24] MEDS: OCTREOTIDE ACETATE 100 MCG/ML AMP IV SCH (04:53)
[2023-12-24] MEDS: INSULIN HUMULIN R 100 UNIT/ML 3ML SQ SCH ×5 (07:30→20:32)
[2023-12-24] MEDS: ZOSYN 3.375GM +NS 50ML IV SCH ×3 (08:30→23:47)
[2023-12-24] MEDS: MIDODRINE HCL 5 MG TABLET PO SCH ×3 (08:30→20:24)
[2023-12-24] MEDS: CETIRIZINE HCL 5 MG TABLET PO SCH (08:30)
[2023-12-24] MEDS: FAMOTIDINE 20MG VIAL IV SCH ×2 (08:30→20:24)
[2023-12-24] MEDS: MULTIVITAMIN WITH MINERALS TABLET PO SCH (08:30)
[2023-12-24] MEDS: THIAMINE HCL 100 MG/ML 2ML VIAL IVP SCH (08:31)
[2023-12-24] MEDS: LEVOFLOXACIN 750 MG/D5W 150 ML 150 ML IV SCH (08:31)
[2023-12-24 08:56] LABS: HEMATOCRIT 26.9 % (42-54); RED BLOOD CELL COUNT(AUTO) 2.69 MIL/uL (4.50-6.20); RED CELL DISTRIBUTION WIDTH 16.4 % (11.0-15.5); WHITE BLOOD COUNT (AUTO) 12.2 K/uL (4.8-10.8)
[2023-12-24] MEDS: VANCOMYCIN 1G/250ML KIT 250 ML IV SCH ×2 (09:36→20:24)
[2023-12-24] MEDS: FOLIC ACID 5 MG/ML VIAL IV SCH (09:36)
[2023-12-24 10:00] LABS: ALBUMIN 2.5 g/dL (3.5-5.0); CREATININE 0.8 mg/dL (0.5-1.5); POTASSIUM 4.4 mmol/L (3.5-5.1); TOTAL PROTEIN, SERUM 5.6 g/dL (6.0-8.3)
[2023-12-24 11:55] LABS: INR 2.18 (0.85-1.15)
[2023-12-24 11:56] LABS: PARTIAL THROMBOPLASTIN TIME 40.7 SEC (26.3-35.5)
[2023-12-24] MEDS: FUROSEMIDE 20 MG TABLET PO SCH (16:13)
[2023-12-24] MEDS: SPIRONOLACTONE 25 MG TAB PO SCH (20:24)
[2023-12-25] VITALS (39 sets, daily range): BP systolic 86–124; BP diastolic 34–62; PULSE 75–102; RESP 12–20; O2SAT 96–100
[2023-12-25 06:19] LABS: ALBUMIN 2.1 g/dL (3.5-5.0); BILIRUBIN,TOTAL 6.3 mg/dL (0.2-1.0); CREATININE 0.8 mg/dL (0.5-1.5); POTASSIUM 3.5 mmol/L (3.5-5.1); TOTAL PROTEIN, SERUM 5.1 g/dL (6.0-8.3)
[2023-12-25] MEDS: INSULIN HUMULIN R 100 UNIT/ML 3ML SQ SCH ×4 (07:30→21:00)
[2023-12-25] MEDS: SPIRONOLACTONE 25 MG TAB PO SCH ×2 (07:52→20:52)
[2023-12-25] MEDS: FUROSEMIDE 20 MG TABLET PO SCH ×2 (07:52→16:44)
[2023-12-25] MEDS: CETIRIZINE HCL 5 MG TABLET PO SCH (07:52)
[2023-12-25] MEDS: MULTIVITAMIN WITH MINERALS TABLET PO SCH (07:52)
[2023-12-25] MEDS: FAMOTIDINE 20MG VIAL IV SCH (07:53)
[2023-12-25] MEDS: ZOSYN 3.375GM +NS 50ML IV SCH (07:53)
[2023-12-25] MEDS: LEVOFLOXACIN 750 MG/D5W 150 ML 150 ML IV SCH (07:53)
[2023-12-25] MEDS: MIDODRINE HCL 5 MG TABLET PO SCH ×3 (07:56→20:53)
[2023-12-25] MEDS: VANCOMYCIN 1G/250ML KIT 250 ML IV SCH (08:23)
[2023-12-25] MEDS: HYDROMORPHONE 0.5 MG SYG (0.5MG/0.5ML) IVP PRN (08:30)
[2023-12-25 09:45] LABS: BASOPHILS # (AUTO) 0.02 K/uL (0.00-0.20); BASOPHILS % (AUTO) 0.2 % (0.0-5.0); EOSINOPHILS # (AUTO) 0.65 K/uL (0.00-0.70); EOSINOPHILS % (AUTO) 6.8 % (0.0-8.0); IMMATURE GRANULOCYTE ABSOLUTE 0.11 K/uL (0-1); LYMPHOCYTES # (AUTO) 1.6 K/uL (1.0-4.8); LYMPHOCYTES % (AUTO) 16.6 % (21.0-51.0); MEAN CORPUSCULAR HEMOGLOBIN 32.4 pg (27.0-33.0); MEAN CORPUSCULAR HGB CONC 33.3 g/dL (32.0-36.0); MEAN CORPUSCULAR VOLUME 97.2 fL (79-99); MONOCYTES # (AUTO) 1.3 K/uL (0.1-1.0); MONOCYTES % (AUTO) 13.7 % (3.0-13.0); NEUTROPHILS # (AUTO) 5.9 K/uL (1.8-7.7); NEUTROPHILS % (AUTO) 61.5 % (40.0-77.0); PLATELET COUNT (AUTO) 91 K/uL (130-400); RED BLOOD CELL COUNT(AUTO) 2.47 MIL/uL (4.50-6.20); RED CELL DISTRIBUTION WIDTH 16.6 % (11.0-15.5); WHITE BLOOD COUNT (AUTO) 9.5 K/uL (4.8-10.8)
[2023-12-25] MEDS: FAMOTIDINE 20MG TAB PO SCH (20:52)
[2023-12-26] VITALS (7 sets, daily range): BP systolic 97–107; BP diastolic 45–54; PULSE 79–130; RESP 20; O2SAT 100
[2023-12-26 05:19] LABS: ALBUMIN 2.1 g/dL (3.5-5.0); BILIRUBIN,TOTAL 6.1 mg/dL (0.2-1.0); POTASSIUM 3.8 mmol/L (3.5-5.1); TOTAL PROTEIN, SERUM 5.2 g/dL (6.0-8.3)
[2023-12-26] MEDS: INSULIN HUMULIN R 100 UNIT/ML 3ML SQ SCH ×3 (06:45→16:30)
[2023-12-26] MEDS: CETIRIZINE HCL 5 MG TABLET PO SCH (10:31)
[2023-12-26] MEDS: MULTIVITAMIN WITH MINERALS TABLET PO SCH (10:31)
[2023-12-26] MEDS: SPIRONOLACTONE 25 MG TAB PO SCH (10:33)
[2023-12-26] MEDS: FUROSEMIDE 20 MG TABLET PO SCH ×2 (10:33→17:00)
[2023-12-26] MEDS: FAMOTIDINE 20MG TAB PO SCH (10:33)
[2023-12-26] MEDS: KCL 20 MEQ ERTAB PO PRN ×2 (10:33→12:18)
[2023-12-26] MEDS: LEVOFLOXACIN 750 MG/D5W 150 ML 150 ML IV SCH (10:34)
[2023-12-26] MEDS: MIDODRINE HCL 5 MG TABLET PO SCH ×2 (10:34→14:53)
[2023-12-28] MEDS ORDERED: PROPOFOL 10 MG/ML 20ML VIAL IV ONE ×2 (10:21→10:32)
[2023-12-28] MEDS ORDERED: SUCCINYLCHOLINE CHLORIDE 20 MG/ML 10 ML VIAL ONE (10:32)
[2023-12-29] MEDS ORDERED: LEVO750T39 PO (21:17)
[2023-12-29] MEDS ORDERED: MIDO10TA PO (21:17)
[2023-12-29] MEDS ORDERED: CETI-89 PO (21:17)
[2023-12-29] MEDS ORDERED: FURO20TA4 PO (21:17)
[2023-12-29] MEDS ORDERED: SPIR50TA5 PO (21:17)
[2023-12-29] MEDS ORDERED: DICY20TA3 PO (21:17)
== END 2023-12-26 18:25 | disposition home or self-care (01) | DRG 871 ==
LOC: EDH 23:20 → EDHIP 12-18 00:30 → 4CH 12-18 00:47 → 3DH 12-19 11:37 → 2CH 12-20 15:33 → 2DH 12-21 00:37 → 2CH 12-21 00:48 → 2DH 12-25 14:18
PROVIDERS: ADMIT Internal Medicine; ATTEND Internal Medicine
PROC: 0W993ZZ Drainage of Right Pleural Cavity, Percutaneous Approach (ICD-10-PCS; 2023-12-19)
PROC: 06HY33Z Insertion of Infusion Device into Lower Vein, Percutaneous Approach (ICD-10-PCS; 2023-12-20)
PROC: B54MZZA Ultrasonography of Right Upper Extremity Veins, Guidance (ICD-10-PCS; 2023-12-20)
PROC: 0W993ZZ Drainage of Right Pleural Cavity, Percutaneous Approach (ICD-10-PCS; 2023-12-20)
PROC: 30233K1 Transfusion of Nonautologous Frozen Plasma into Peripheral Vein, Percutaneous Approach (ICD-10-PCS; 2023-12-20)
PROC: 30233N1 Transfusion of Nonautologous Red Blood Cells into Peripheral Vein, Percutaneous Approach (ICD-10-PCS; 2023-12-20)
PROC: 0W9930Z Drainage of Right Pleural Cavity with Drainage Device, Percutaneous Approach (ICD-10-PCS; principal; 2023-12-21)
PROC: 30233R1 Transfusion of Nonautologous Platelets into Peripheral Vein, Percutaneous Approach (ICD-10-PCS; 2023-12-21)
DX: A41.9 Sepsis, unspecified organism (principal); E43 Unspecified severe protein-calorie malnutrition; G92.8 Other toxic encephalopathy; R65.21 Severe sepsis with septic shock; J96.01 Acute respiratory failure with hypoxia; J18.9 Pneumonia, unspecified organism; E87.20 Acidosis, unspecified; I50.30 Unspecified diastolic (congestive) heart failure; J94.2 Hemothorax; D62 Acute posthemorrhagic anemia; J98.11 Atelectasis; K70.31 Alcoholic cirrhosis of liver with ascites; K80.20 Calculus of gallbladder without cholecystitis without obstruction; F10.10 Alcohol abuse, uncomplicated; Z79.899 Other long term (current) drug therapy; Z68.22 Body mass index [BMI] 22.0-22.9, adult
CPT/HCPCS: 32555; 36415; 36430; 36556; 36600; 71045; 71250; 71275; 74150; 74178; 76705; 80048; 80053; 80076; 80202; 81001; 82105; 82140; 82435; 82550; 82803; 82947; 82948; 83036; 83605; 83735; 83880; 84100; 84132; 84145; 84295; 84484; 85014; 85018; 85025; 85027; 85610; 85730; 86850; 86900; 86901; 86923; 86927; 87040; 87641; 93005; 93306; 94660; 94760; C1729; C1751; G0378; J1170; J1815; J1885; J1956; J2270; J2354; J2371; J2405; J2543; J2597; J2930; J3370; J3411; J3430; J3490; J7050; J7189; P9012; P9016; P9017; P9034; P9046; P9047; Q9967; 3370; C9132